=== PATIENT | male | born 1970 | race African-American/Black ===

== ENCOUNTER 2017-04-09 11:02 | Day surgery (SDC) | payer OTHER ==
--- NOTE | 2016-12-07 09:47 | HP ---
PREOPERATIVE HISTORY AND PHYSICAL: DATE OF ADMISSION/SURGERY: 01/01/17 [facility] DATE OF OFFICE VISIT/ENCOUNTER: 12/02/16 ATTENDING SURGEON: Jayshree Paz MD * (DICTATED BY ANJU FLOREZ) PROCEDURE: Right long and ring trigger finger releases. CHIEF COMPLAINT: Right long and ring finger triggering. HISTORY OF PRESENT ILLNESS: This is a 46-year-old male who complains of locking pain and triggering in his right long and finger fingers. This has been developing over the past year and has been getting progressively worse. It is very bothersome anytime he tries to group controller anything. Sometimes the fingers lock in flexion and he cannot extend them. He has failed conservative treatment including a cortisone injection. The patient would like to proceed with surgical intervention at this time for correction of this problem. PAST MEDICAL HISTORY: 1. Hypertension. 2. Diabetes. 3. Hypercholesterolemia. 4. Herniated disk in his neck. 5. Anxiety/depression. PAST SURGICAL HISTORY: 1. Right shoulder surgery. 2. Right knee surgery x3. 3. Right ankle surgery. 4. Right small finger surgery for mallet repair. CURRENT MEDICATIONS: 1. Ambien 10 mg q.h.s. p.r.n. 2. Aspirin 81 mg daily. 3. Carvedilol 25 mg half tab twice a day. 4. Cymbalta 60 mg daily. 5. Diclofenac sodium 50 mg up to 3 times a day as needed. 6. Gabapentin 300 mg four times a day. 7. Hydrocodone/acetaminophen 10/325 q.12 hours p.r.n. 8. Hydroxyzine HCl 50 mg 2 q.h.s. p.r.n. sleep. 9. Lisinopril 40 mg daily. 10. Melatonin 3 mg q.h.s. 11. Metformin HCl 500 mg b.i.d. 12. Multivitamin daily. 13. Norvasc 10 mg daily. 14. Oxycodone HCl ER 40 mg 1 tab t.i.d. 15. Potassium chloride ER 20 mEq daily. 16. Pravastatin sodium 20 mg half tab daily. 17. Sildenafil citrate 20 mg daily. 18. Testosterone cypionate 200 mg/mL, 100 mg weekly injections. 19. Vitamin C 500 mg daily. ALLERGIES: No known drug allergies. FAMILY MEDICAL HISTORY: Diabetes. 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 He is a smoker. He smokes a pack per day. He denies recreational drug use. Does admit to alcohol use on rare occasion. REVIEW OF SYSTEMS: General: Negative for fevers, chills, or night sweats. No known anesthesia problems. HEENT: Negative for headache, lightheadedness, or syncopal episodes. Integumentary: Negative for abrasions, lesions, or open wounds. Cardiothoracic: Positive for hypertension. Negative for chest pain, palpitations, or edema. Pulmonary: Negative for shortness of breath with exertion, chronic cough, or COPD. GI: Negative for nausea, vomiting, diarrhea , constipation, or GERD. : Negative for nocturia, urinary frequency, urgency , history of UTIs, or kidney problems. Musculoskeletal: Positive for current complaint. Positive for chronic neck pain. Neurological: Positive for anxiety /depression. Negative for paresthesias, numbness, history of seizure, stroke, or epilepsy. Endocrine: Positive for diabetes. Negative for thyroid issues. Hematologic: Negative for easy bruising, anemia, excessive bleeding, or history of DVT. Infectious Disease: Negative for history of MRSA, hepatitis C , or HIV. PHYSICAL EXAMINATION GENERAL: Well-developed, well-nourished, 46-year-old male in no acute distress. VITAL SIGNS: Height 5 feet 11.5 inches, weight 270 pounds, blood pressure 135/ 84, pulse rate 67. HEENT: Normocephalic, atraumatic. Pupils are equal, round, and reactive to light and accommodation. Extraocular movements are intact. NECK: Supple. No palpable lymph nodes. Throat is clear. PULMONARY: Lungs are clear to auscultation bilaterally. No wheezes, rales, or rhonchi. CARDIOVASCULAR: Regular rate and rhythm. S1, S2. No murmurs, rubs, or gallops. No edema. ABDOMEN: Positive bowel sounds, soft, nontender. NEUROLOGICAL: Alert and oriented x3. Cranial nerves II through XII are intact. Sensation is intact to light touch. MUSCULOSKELETAL: On exam of his right hand, he has tenderness to palpation of the A1 pulleys of both the long and ring fingers. He has full motion but active triggering as he moves from flexion to extension. Neurovascular function is intact. IMPRESSION: Right long and ring finger trigger fingers. PLAN: The patient is scheduled to undergo a right long and ring finger trigger finger release with Dr. Paz on 01/01/17. He will return to the office 10 to 14 days postop for followup and suture removal. He has pain medications already at home for chronic neck pain secondary to a herniated disk and he will plan on using these if needed for postoperative pain management. ANJU FLOREZ [id number]/[facility] #: [id number] CASANDRA
--- NOTE | 2017-04-08 04:00 | HP ---
PREOPERATIVE HISTORY AND PHYSICAL: DATE OF SURGERY/ADMISSION: 04/09/17 [facility] DATE OF OFFICE VISIT/ENCOUNTER: 04/07/17 ATTENDING SURGEON: Jayshree Paz MD * (DICTATED BY ANJU FLOREZ) PROCEDURE: Left ring finger trigger finger release, cortisone injections right ring and middle trigger fingers. CHIEF COMPLAINT: Left ring finger triggering. HISTORY OF PRESENT ILLNESS: This is a 46-year-old male who complains of locking and pain and triggering in his left ring finger. This has been developing over the past year and has been getting progressively worse. It is very bothersome anytime he tries to coutierier anything. Sometimes, his finger locks in flexion and he cannot extend it. He has failed conservative treatment including a cortisone injection. The patient would like to proceed with surgical intervention at this time for correction of this problem. The patient is also complaining of triggering in his right ring and middle fingers and has consented to proceed with cortisone injections in those fingers on the day of surgery. PAST MEDICAL HISTORY: 1. Hypertension. 2. Diabetes. 3. Hypercholesterolemia. 4. Herniated disk in his neck. 5. Anxiety/depression. PAST SURGICAL HISTORY: 1. Right shoulder surgery. 2. Right knee surgery x3. 3. Right ankle surgery. 4. Right small finger surgery for mallet repair. CURRENT MEDICATIONS: 1. Ambien 10 mg q.h.s. p.r.n. 2. Aspirin 81 mg daily. 3. Carvedilol 25 mg half tab twice daily. 4. Cymbalta 60 mg daily. 5. Diclofenac sodium 50 mg up to 3 times a day p.r.n. 6. Gabapentin 300 mg 4 times a day. 7. Hydrocodone/acetaminophen 10/325 q.12 hours p.r.n. pain. 8. Hydroxyzine HCl 50 mg 2 q.h.s. p.r.n. sleep. 9. Lisinopril 40 mg daily. 10. Melatonin 3 mg q.h.s. 11. Metformin HCl 500 mg b.i.d. 12. Multivitamin daily. 13. Norvasc 10 mg daily. 14. Oxycodone HCl ER 40 mg one tab t.i.d. 15. Potassium chloride ER 20 mEq daily. 16. Pravastatin sodium 20 mg half tab daily. 17. Sildenafil citrate 20 mg daily. 18. Testosterone. 19. Cypionate 200 mg/mL 100 mg weekly injections. 20. Vitamin C 500 mg daily. ALLERGIES: No known drug allergies. FAMILY MEDICAL HISTORY: Diabetes. 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 He is a smoker. He smokes approximately a pack per day. He denies recreational drug use. He admits to drinking alcohol or rare occasion. REVIEW OF SYSTEMS: General: Negative for fevers, chills, or night sweats. No known anesthesia problems. HEENT: Negative for headache, lightheadedness, or syncopal episodes. Integumentary: Negative for abrasions, lesions, or open wounds. Cardiothoracic: Positive for hypertension. Negative for chest pain, palpitations, or edema. Pulmonary: Negative for shortness of breath with exertion, chronic cough, or COPD. GI: Negative for nausea, vomiting, diarrhea, constipation, or GERD. : Negative for nocturia, urinary frequency or urgency , history of UTIs or kidney problem. Musculoskeletal: Positive for current complaint. Positive for chronic neck pain. Neurologic: Positive for anxiety/ depression. Negative for paraesthesias, numbness, history of seizure, stroke, or epilepsy. Endocrine: Positive for diabetes. Negative for thyroid issues. Hematologic: Negative for easy bruising, anemia, excessive bleeding, or history of DVT. Infectious Disease: Negative for history of MRSA, hepatitis C , or HIV. PHYSICAL EXAMINATION: GENERAL: Well-developed, well-nourished 46-year-old male, in no acute distress. VITAL SIGNS: Height 5 feet 11-1/2 inches, weight 265 pounds, blood pressure 159 /100, pulse rate 68. HEENT: Normocephalic, atraumatic. Pupils are equal, round, and reactive to light and accommodation. Extraocular movements are intact. Throat is clear. NECK: Supple. No palpable lymph nodes. PULMONARY: Lungs are clear to auscultation bilaterally. No wheezes, rales, or rhonchi. CARDIOVASCULAR: Regular rate and rhythm. S1, S2. No murmurs, rubs, or gallops. No edema. ABDOMEN: Positive bowel sounds, soft, nontender. NEUROLOGIC: Alert and oriented x3. Cranial nerves II through XII are intact. Sensation is intact to light touch. MUSCULOSKELETAL: On exam of his left hand, he has tenderness to palpation at the A1 cassius of the ring finger. He has full motion, but stiffness as he tries to fully flex the finger and triggering upon return to extension. Neurovascular function is intact. On exam of the right hand, he has tenderness to palpation at the A1 pulleys of both the long and ring fingers. He has full motion, but active triggering as he moves through range of motion. IMPRESSION: Left hand ring finger trigger, right hand ring and middle finger trigger fingers. PLAN: The patient is scheduled to undergo a left ring finger trigger finger release, and cortisone injections for the right ring and middle trigger fingers on 04/09/[address] Paz. He will return to the office 10 to 14 days for followup and suture removal. He has pain medications already at home for chronic neck pain secondary to a herniated disk and he will plan on using these if needed for postoperative pain management. ANJU FLOREZ [id number]/[facility] #: [id number] CASANDRA
[~2017-04-09 11:02] MED LIST: Buffered Lidocaine 0.9% SYRIN* 5 ML/SYR SYRINGE INTRADERM ONE
[2017-04-09] MEDS ORDERED: methylPREDNISolone ACETATE 80* 80 MG/ML 1 ML VIAL ONE (12:17)
[2017-04-09] MEDS ORDERED: Lidocaine 1% INJ* 10 MG/ML 30 ML SDV ONE (12:17)
[2017-04-09] MEDS ORDERED: Midazolam* 1 MG/ML 2 ML VIAL (2 MG) ONE (12:26)
[2017-04-09] MEDS ORDERED: Propofol* 10 MG/ML 20 ML BTL IV PUSH ONE (12:26)
[2017-04-09] MEDS ORDERED: fentaNYL* 50 MCG/ML 2 ML VIAL (100 MCG VIAL) ONE (12:26)
[2017-04-09 12:59] VITALS: BP 141/97
--- NOTE | 2017-04-10 06:07 | OP ---
DATE OF OPERATION: 04/09/17 [facility] DATE OF : 72 SURGEON: Jayshree Paz MD ENERGY EFFICIENCY ENGINEER: ANJU Anna ANESTHESIA: Local MAC. PRE-OP DIAGNOSIS: Trigger fingers of the left ring, right middle, and right ring. POST-OP DIAGNOSIS: Trigger fingers of the left ring, right middle, and right ring. OPERATIVE PROCEDURE: Trigger finger injection, right middle and right ring, and trigger finger release, left ring. INDICATIONS: Demetrius is a 46-year-old man who has severe locking and triggering of his left ring, right middle, and right ring fingers. He presents for trigger finger injection on the right and release of the ring finger on the left. ESTIMATED BLOOD LOSS: Zero. TOURNIQUET TIME: About 5 minutes. DESCRIPTION OF PROCEDURE: The patient was brought to the operative room and was given a sedation anesthetic and a digital block with 10 cc of 1% plain lidocaine overlying the A1 cassius of the left ring finger. Skin of his left hand and forearm was prepped and draped in the usual sterile fashion. The hand and forearm were exsanguinated and the tourniquet elevated to 250 mmHg. A transverse incision was made centered over the A1 cassius of the left ring finger. We dissected through the subcutaneous tissue bluntly down to the A1 cassius. Cassius was incised longitudinally, completely releasing the flexor tendons, which were in good condition but had abundant tenosynovitis surrounding them. This tenosynovitis was debrided. The wound was irrigated and the skin edges reapproximated with 4-0 nylon suture. The wound was dressed with Xeroform, 4x4, Webril, and an Usman wrap. The patient tolerated the procedure well and was brought to the recovery room in good condition. [id number]/[facility] #: [id number] MTDD
== END 2017-04-09 13:16 | disposition home or self-care (01) ==
LOC: OREAST 11:02
PROVIDERS: ATTEND Orthopaedic Surgery
DX: M65.342 Trigger finger, left ring finger (principal); M65.331 Trigger finger, right middle finger; M65.341 Trigger finger, right ring finger; F17.210 Nicotine dependence, cigarettes, uncomplicated; E11.8 Type 2 diabetes mellitus with unspecified complications; I10 Essential (primary) hypertension; E78.00 Pure hypercholesterolemia, unspecified; Z79.84 Long term (current) use of oral hypoglycemic drugs
CPT/HCPCS: J1040; J2250; J2704; J3010

== ENCOUNTER 2017-05-11 06:30 | Day surgery (SDC) | payer OTHER ==
[2017-05-11] MEDS ORDERED: methylPREDNISolone ACETATE 80* 80 MG/ML 1 ML VIAL ONE (07:15)
[2017-05-11] MEDS ORDERED: Lidocaine 1% INJ* 10 MG/ML 30 ML SDV ONE (07:15)
[2017-05-11] MEDS ORDERED: Midazolam* 1 MG/ML 2 ML VIAL (2 MG) ONE (07:36)
[2017-05-11] MEDS ORDERED: fentaNYL* 50 MCG/ML 2 ML VIAL (100 MCG VIAL) ONE (07:36)
[2017-05-11] MEDS ORDERED: KETAMINE HCL* 50 MG/ML 10 ML VIAL ONE (07:54)
[2017-05-11] MEDS ORDERED: oxyCODONE/Acetamin 5/325 MG* TAB PO PRN (08:09)
[2017-05-11] MEDS ORDERED: Ondansetron INJ* 2 MG/ML VIAL IV PRN (08:09)
[2017-05-11] MEDS ORDERED: DiMENhydriNATE IV* 50 MG/ML VIAL IV PUSH PRN (08:09)
[2017-05-11] MEDS ORDERED: Acetaminophen TAB* 325 MG PO PRN (08:09)
[2017-05-11] MEDS ORDERED: Propofol* 10 MG/ML 20 ML BTL IV PUSH ONE (08:15)
[2017-05-11] MEDS ORDERED: Ketorolac INJ* 30 MG/ML 1 ML VIAL ONE (08:15)
[2017-05-11] MEDS ORDERED: Lidocaine 2% PF * 5 ML VIAL ONE (08:15)
[2017-05-11 08:38] VITALS: BP 181/107
--- NOTE | 2017-05-11 09:29 | OP ---
DATE OF OPERATION: 05/11/17 [facility] DATE OF : 72 SURGEON: Jayshree Paz MD. MOTORCYCLE MAKER: AJNU Anna. ANESTHESIOLOGIST: Dr. Flores ANESTHESIA: Local MAC. PRE-OP DIAGNOSIS: Trigger finger's right ring and middle and left middle finger. POST-OP DIAGNOSIS: Trigger finger's right ring and middle and left middle finger. OPERATIVE PROCEDURE: Left middle finger trigger injection and right middle finger and ring finger trigger release. ESTIMATED BLOOD LOSS: Zero. TOURNIQUET TIME: Approximately 10 minutes. INDICATIONS FOR PROCEDURE: Demetrius is a 46-year-old male with trigger fingers of bilateral and middle and ring fingers, who presents for injection of left middle finger and trigger finger release of the middle and ring fingers on the right hand. DESCRIPTION OF PROCEDURE: The patient was brought to the operating room, was given a sedation anesthetic and a local infiltration of 10 cc of 1% plain lidocaine on the palm of his right hand. A combination of 1 mL of 1% plain lidocaine and an 80 mg of Depo-Medrol was injected after sterile prep as A1 cassius of the left middle finger. Skin of the right hand and forearm was prepped and draped in usual sterile fashion. The hand and forearm were exsanguinated and the tourniquet elevated to 250 mmHg. A transverse incision was made centered over the A1 cassius of the middle and ring finger, which dissected bluntly to the subcutaneous tissue down to the A1 pullies. The digital neurovascular bundles were retracted by the surgical supply assistant, Arti Ma. The A1 pullies of the middle and ring fingers were then incised longitudinally completely releasing the flexor tendons, which were in good condition. The wound was copiously irrigated with saline. The skin edges were reapproximated with 4-0 nylon suture. The wound was dressed with Xeroform, 4x4 , Webril, and an Usman wrap. The patient tolerated the procedure well, was brought to the recovery room in good condition. [id number]/[facility] #: [id number] MTDD
== END 2017-05-11 09:13 | disposition home or self-care (01) ==
LOC: OREAST 06:30
PROVIDERS: ATTEND Orthopaedic Surgery
DX: M65.331 Trigger finger, right middle finger (principal); M65.341 Trigger finger, right ring finger; M65.332 Trigger finger, left middle finger; I10 Essential (primary) hypertension; F17.200 Nicotine dependence, unspecified, uncomplicated; E11.9 Type 2 diabetes mellitus without complications; Z79.84 Long term (current) use of oral hypoglycemic drugs; F41.8 Other specified anxiety disorders
CPT/HCPCS: J1040; J1885; J2250; J2704; J3010

== ENCOUNTER 2017-06-01 10:42 | Day surgery (SDC) | payer OTHER ==
--- NOTE | 2017-05-31 15:37 | HP ---
DATE OF ADMISSION: 06/01/2017 - [facility] DATE OF DICTATION: 05/31/2017. CHIEF COMPLAINT: Right hand wound. HISTORY OF PRESENT ILLNESS: Demetrius is a 47-year-old male who had a trigger finger release of the right ring and middle fingers on 05/11/2017. At his postop appointment, the sutures were removed and he had wound dehiscence. He has been treated with warm soapy water soaks and antibiotics, but the wound continues to drain clear fluid and has not healed. He presents for I and D of the right hand wound. PAST MEDICAL HISTORY: Significant for diabetes, hypertension, hypercholesterolemia, herniated disk in the neck, anxiety and depression. PAST SURGICAL HISTORY: Right shoulder surgery, three knee surgeries, right ankle surgery, right small finger mallet finger repair, left hand trigger finger release, right hand trigger finger release. MEDICATIONS: 1. Ambien 10 mg p.o. at bedtime prn for sleep. 2. Aspirin 81 mg p.o. daily. 3. Carvedilol 25 mg [id number] p.o. b.i.d. 4. Cymbalta 60 mg p.o. daily. 5. Diclofenac Sodium 50 mg p.o. t.i.d. prn. 6. Gabapentin 300 mg p.o. q.i.d. 7. Hydrocodone/acetaminophen 10/300 one p.o. q.12 hours prn. 8. Hydroxyzine Hydrochloride 50 mg two p.o. at bedtime prn for sleep. 9. Lisinopril 40 mg p.o. daily. 10. Melatonin 3 mg p.o. at bedtime. 11. Metformin HCl 500 mg p.o. b.i.d. 12. Multivitamin for men one p.o. daily. 13. Norvasc 10 mg p.o. daily. 14. Oxycodone HCl ER 40 mg p.o. t.i.d. 15. Potassium Chloride ER 20 mEq p.o. daily. 16. Pravastatin Sodium 20 mg [id number] p.o. at bedtime. 17. Sildenafil Citrate 20 mg p.o. daily. 18. Testosterone Cypionate 200 mg/ml 100 mg weekly injection. 19. Vitamin C 500 mg p.o. daily. ALLERGIES: No known drug allergies. FAMILY HISTORY: Diabetes. 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 He smokes approximately a pack of cigarettes a day. He denies recreational drug abuse. Occasional alcohol intake. REVIEW OF SYSTEMS: Negative for fever, chills, night sweats. No known anesthesia problems. Review of systems is negative for cephalic, cardiovascular , respiratory, gastrointestinal, skin, neurologic, endocrine and hematologic symptoms. Positive for chronic neck pain. Negative for history of MRSA, hepatitis C, HIV. PHYSICAL EXAMINATION GENERAL: He is a healthy-appearing, well-nourished male in no acute distress. VITAL SIGNS: Weight 205 pounds, height 71.5, pulse 84, respirations 14, temperature 97.3. HEENT: Exam is unremarkable. NECK: He has somewhat mild decreased range of motion of his neck due to pain. LUNGS: Clear to auscultation. Good inspiratory effort. No wheezing. The patient admits to some upper respiratory congestion today. HEART: Regular rate and rhythm without murmur. PERIPHERAL VASCULAR: He has palpable pulses, no peripheral edema. EXTREMITIES: Exam of his right hand: He has a wound with clear serous drainage , no erythema, but no healing of the incision. He can move his fingers well. There is no clicking or locking. NEUROLOGIC: He is alert and oriented without focal deficit. IMPRESSION: Postop wound infection after trigger finger release. PLAN: I and D of the right hand wound. This will be done 06/01/2017. We will see the patient back in follow-up about ten days postop. [id number]/[facility] #: [id number] CASANDRA
[~2017-06-01 10:42] MED LIST changes: +Famotidine TAB* 20 MG PO ONE; +Lidocaine 1% INJ* 10 MG/ML 30 ML SDV ONE; +Metoclopramide TAB* 10 MG PO ONE; +Naloxone* 0.4 MG/ML 1 ML VIAL IV PRN; +Ondansetron INJ* 2 MG/ML VIAL IV PRN; +fentaNYL* 50 MCG/ML 2 ML VIAL (100 MCG VIAL) IV PRN; +oxyCODONE/Acetamin 5/325 MG* TAB PO PRN
[2017-06-01] MEDS ORDERED: Famotidine IV* 10 MG/ML 2 ML (20 mg) ONE ×2 (10:54→11:32)
[2017-06-01] MEDS ORDERED: Metoclopramide TAB* 10 MG ONE (10:54)
[2017-06-01] MEDS ORDERED: ceFAZolin 2 GM PREMIX (*) 2 GM/50 ML BAG IVPB ONE (10:54)
[2017-06-01] MEDS ORDERED: fentaNYL* 50 MCG/ML 2 ML VIAL (100 MCG VIAL) ONE (11:47)
[2017-06-01] MEDS ORDERED: Ketorolac INJ* 30 MG/ML 1 ML VIAL ONE (11:47)
[2017-06-01] MEDS ORDERED: Ondansetron INJ* 2 MG/ML VIAL ONE (11:47)
[2017-06-01] MEDS ORDERED: Propofol* 10 MG/ML 20 ML BTL IV PUSH ONE (11:47)
[2017-06-01] MEDS ORDERED: Midazolam* 1 MG/ML 2 ML VIAL (2 MG) ONE (11:47)
[2017-06-01 13:42] VITALS: BP 144/88
--- NOTE | 2017-06-02 03:15 | OP ---
DATE OF OPERATION: 06/01/17 [facility] DATE OF : 72 SURGEON: aJyshree Paz MD PHOTO CHECKER: ANJU Jason ANESTHESIOLOGIST: Gilbert Ledesma MD ANESTHESIA: Local MAC. PRE-OP DIAGNOSIS: Postop wound infection and dehiscences of the right hand. POST-OP DIAGNOSIS: Postop wound infection and dehiscences of the right hand. OPERATIVE PROCEDURE: I and D of the right hand. ESTIMATED BLOOD LOSS: Zero. TOURNIQUET TIME: About 10 minutes. INDICATION FOR PROCEDURE: Demetrius is a 47-year-old male who had trigger finger releases of the right middle and ring fingers 3 weeks ago. After his sutures removed, he developed a dehiscences of his wound and was treated with warm soapy water soap and antibiotics, but has failed to heal the wound and still has abundant serous drainage. He presents for I and D of the right hand. DESCRIPTION OF PROCEDURE: The patient was brought to the operating room, was given a sedation anesthetic and a local infiltration of 10 cc of 1% plain lidocaine. The skin of his right hand and forearm was prepped and draped in the usual sterile fashion. The hand and forearm were exsanguinated and the tourniquet elevated to 250 mmHg. The wound was copiously irrigated with saline. The flexor tendons were in very good condition. There was no purulent material prior to the irrigation. The wound was cultured. After irrigating with a liter of saline, the wound was loosely closed with 4-0 nylon suture and dressed with Xeroform, 4x4, Webril, and an Usman wrap. The patient tolerated the procedure well and was brought to the recovery room in good condition. [id number]/[facility] #: [id number] [facility]
== END 2017-06-01 13:40 | disposition home or self-care (01) ==
LOC: OREAST 10:42
PROVIDERS: ATTEND Orthopaedic Surgery
DX: T81.4XXA Infection following a procedure, initial encounter (principal); E11.9 Type 2 diabetes mellitus without complications; Z79.84 Long term (current) use of oral hypoglycemic drugs; I10 Essential (primary) hypertension; E78.00 Pure hypercholesterolemia, unspecified; F41.8 Other specified anxiety disorders; M50.20 Other cervical disc displacement, unspecified cervical region
CPT/HCPCS: 87070; 87073; 87205; A9270-GY; J0690; J1885; J2250; J2405; J2704; J3010

== ENCOUNTER 2017-09-01 12:36 | Observation (INO) | payer OTHER ==
[2017-09-01] MEDS ORDERED: Nitroglycerin 2% OINT* 1 GM PAK TOPICAL ONE (13:15)
[2017-09-01] MEDS ORDERED: Albuterol/Ipratropium NEB.SOL* Albuterol 2.5 MG/Ipratropium 0.5 MG 3 ML INH ONE (13:17)
[2017-09-01 13:42] LABS: Hematocrit 49 % (42-52); Hemoglobin 16.7 g/dl (14.0-18.0); Mean Corpuscular HGB Conc 34 g/dl (31-36); Mean Corpuscular Hemoglobin 31 pg (27-31); Mean Corpuscular Volume 91 fL (80-94); Red Blood Count 5.38 10^6/ul (4.0-5.4); Red Cell Distribution Width 14 % (10.5-15); White Blood Count 12.1 10^3/ul (3.5-10.8)
--- NOTE | 2017-09-01 14:02 | RAD ---
Indication: Chest pain, tightness, nausea. History of tobacco use. Comparison: October 28, 2013 Technique: Upright AP 1354 hours Report: Suggestion of a potential 7 mm LEFT basilar pulmonary nodule new compared with the 2014 exam. The lungs and pleural spaces are otherwise clear. Negative for pneumothorax. The heart, pulmonary vasculature, and mediastinal contours are unremarkable. IMPRESSION: Given history of tobacco use consider CT to further assess the potential 7 mm nodule at the LEFT lung base. The examination is otherwise unremarkable.
[2017-09-01 14:03] LABS: ABS Basophils 0.1 10^3/ul (0-0.2); ABS Eosinophils 0.1 10^3/ul (0-0.6); ABS Lymphocytes 3.2 10^3/ul (1.0-4.8); ABS Monocytes 0.9 10^3/ul (0-0.8); ABS Neutrophils 7.8 10^3/ul (1.5-7.7); ABS Nucleated RBC 0 10^3/ul; Eosinophil % 1.2 % (0-6); Lymphocyte % 26.5 % (25-47); Mean Platelet Volume 11.3 um3 (7.4-10.4); Nucleated Red Blood Cells % 0.1; Platelet Count 132 10^3/ul (150-450)
[2017-09-01 14:05] LABS: EGFR Non-African American 83.3 (>60)
[2017-09-01] MEDS ORDERED: Dextrose 50% Syringe 50 ML* 25 GM/50 ML SYRINGE IV PUSH PRN (14:44)
[2017-09-01] MEDS ORDERED: Ondansetron INJ* 2 MG/ML VIAL IV PRN (14:44)
[2017-09-01] MEDS ORDERED: Acetaminophen TAB* 325 MG PO PRN (14:44)
[2017-09-01] MEDS ORDERED: Zolpidem TAB* 10 MG PO PRN (14:46)
[2017-09-01] MEDS ORDERED: Iodixanol* (CONTRAST) 320 MG/ML 100 ML SDV IV ONE (16:10)
--- NOTE | 2017-09-01 16:24 | RAD ---
Indication: Chest pain, lung nodule Contrast: Administered 95.0 ml of Contrast -- mg/ml CTA of the chest was performed after IV contrast administration. Coronal and sagittal reconstructed images were obtained. The pulmonary arterial tree is well opacified. There is no evidence of filling defect to suggest pulmonary embolus. Small 3 to 5 mm pretracheal lymph nodes are noted. The origins of the great vessels demonstrates a separate origin of left vertebral artery between the left common carotid left subclavian artery. The trachea and major bronchi appear patent. The right lung field demonstrates no pleural fluid, nodules or masses. There may be some dependent changes in the right lung base. No alveolar consolidation is noted. The left lung field demonstrates no evidence of consolidation. No focal nodules are noted in the left base. This may represent a nipple shadow. No pleural fluid is identified. No pneumothorax is noted. No bony structures are noted. IMPRESSION: No evidence of pulmonary embolus is noted. No evidence of left lower lobe nodule is identified.
--- NOTE | 2017-09-01 16:30 | HP ---
CC: Dr. Gilbert* HISTORY AND PHYSICAL: DATE OF ADMISSION: 09/01/17 PRIMARY CARE PROVIDER: Dr. Gilbert. ATTENDING PHYSICIAN WHILE IN THE HOSPITAL: Dalton Samuel MD* (report dictated by Jesus Benites NP) CHIEF COMPLAINT: Chest pain. HISTORY OF PRESENT ILLNESS: Mr. Rojas is a 47-year-old male patient. He has a history of diabetes, hypertension, and hyperlipidemia. He has a history of a cervical spine herniated disk. He has a history of anxiety, depression, YENI, also carries a history of a right hand wound which has now healed. He comes in to our ER today stating that the last 2 to 3 weeks he has been having intermittent chest discomfort. He stays the pain typically starts out in his neck and this is common for him. He has been having this for some time. He is going to be seeing a neurosurgeon for this. The pain starts in the neck and then it will shoot down to one of his arms and his left arm becomes numb. He has noted in the last 2 to 3 weeks he has had intermittent chest discomfort associated with the neck pain. He says that when he gets this discomfort, he will sometimes get diaphoretic and he will also get short of breath with it. He feels that to his knowledge, the pain has not started with exertion. He describes the pain as a pressure, he says it is not exertional. He says he has been having the pain in the intensity lasting anywhere from seconds to half a minute. He has not had any calf pain, no leg swelling, no abdominal pain. He has not had any fevers or chills. There has been no recent cough or shortness of breath. He denied having any recent illnesses. There has been no nausea, vomiting, or any diarrhea. He was concerned though because he was getting this intermittent chest discomfort. He was actually at his PCP's today, he relayed this information to his PCP, his PCP was concerned and said that he should be evaluated for further etiologies. He came into the ED today, he is chest pain free now, but because of his risk factors, the fact that he was having intermittent chest discomfort, we were asked to evaluate for admission. PAST MEDICAL HISTORY: Significant for: 1. Diabetes. 2. Hypertension. 3. Hyperlipidemia. 4. Disk herniation in the cervical spine. 5. Anxiety. 6. Depression. 7. Right hand wound, which has now healed. 8. YENI. PAST SURGICAL HISTORY: 1. He has had right shoulder surgery. 2. He has had 3 knee surgeries. 3. He has had right ankle surgery. 4. He has had both right and left trigger finger surgeries. 5. He has had right 5th finger repair secondary to a fracture. HOME MEDICATIONS: Include: 1. Melatonin 3 mg at bedtime. 2. Lisinopril 40 mg daily. 3. Metformin 500 mg p.o. b.i.d. 4. Amlodipine 10 mg p.o. daily. 5. Multivitamin 1 tablet daily. 6. Vitamin C 500 mg p.o. daily. 7. [employer] 1 tablet p.o. b.i.d. as needed. 8. Oxycodone 10 to 20 mg every 4 hours as needed. 9. Testosterone 200 mg IM weekly. 10. Pravachol 40 mg p.o. at bedtime. 11. Potassium 20 mEq p.o. daily. 12. Atarax 50 mg p.o. at bedtime as needed. 13. Ambien 10 mg p.o. at bedtime as needed. 14. Cymbalta 60 mg p.o. daily. 15. Coreg 12.5 mg p.o. b.i.d. 16. Aspirin 81 mg daily. 17. Gabapentin 300 mg p.o. q.a.m. 18. Voltaren EC 50 mg p.o. t.i.d. as needed. ALLERGIES TO MEDICATIONS: Include no known drug allergies. FAMILY HISTORY: His mother has a history of dementia. Father, he said of kidney failure. SOCIAL HISTORY: He was a pack a day smoker. He says now a pack lasts him about a week. He has been smoking since the age of 17. He rarely drinks alcohol. Surrogate decisionmaker is his . REVIEW OF SYSTEMS: There is no documented fever. He denied having any significant weight change. There is no double vision. He denies having any ear discharge. There is no rhinorrhea. He denies having any sore throat. He denies having any abdominal pain. He did admit to nausea associated with chest pressure. He does admit to chest pressure from [facility]. He denies any shortness of breath with the exception he does have it when he get chest discomfort. He denies having any abdominal pain now. He denies having any dysuria. No frequency. There is no seizure. He denies having any loss of consciousness. Review of 14 systems completed, all others negative. PHYSICAL EXAMINATION GENERAL: At this time, Mr. Rojas is a 47-year-old male patient. He is sitting in the ED stretcher. He does not appear to be in any acute distress. VITAL SIGNS: Blood pressure 138/93, pulse 56, respirations 18, O2 sat 98%, and temperature 98.7. HEENT: Head atraumatic and normocephalic. Eyes, EOMs are intact. Sclerae anicteric and not pale. Throat, oral mucosa appears to be moist. No oropharyngeal erythema. NECK: Supple. LUNGS: Clear to auscultation bilaterally. No wheezes, rales, or rhonchi. HEART: Sounds S1 and S2. Regular rate and rhythm. No murmurs, rubs, or gallops. ABDOMEN: Soft, it was flat, nontender. Bowel sounds are present. EXTREMITIES: Pulses were 2+ throughout. Moving all 4 extremities with 5/5 strength. NEUROLOGIC: The patient is awake, he is alert, he is oriented x3. His speech is clear. Tongue midline. He had no gross focal deficits. SKIN: Grossly intact. DIAGNOSTIC STUDIES/LABORATORY DATA: Revealed a WBC of 12.1, RBC of 5.38, hemoglobin of 16.7, hematocrit of 49, platelet count of 132. Sodium 140, potassium 4.2, chloride of 108, bicarb 27, BUN 12, creatinine of 0.97, glucose of 106, lactic 1.1, calcium 9.1. Total bili 1.3, AST 15, ALT 16, alk phos 52. Troponin 0.01. Albumin of 4.3. There is a chest x-ray. When I reviewed it, I did not appreciate any acute disease; however, Radiology read it as given history of tobacco abuse, consider CT to assess the potential 7 mm lung nodule at the left lung base. Exam otherwise is negative. He did have an EKG. The EKG today here reveals a normal sinus rhythm. He did have flattened T waves in lead I and inverted in aVL, which are new compared with his EKG from 2008 in the computer. I do note that in the office he did have inverted T waves in lead I and aVL as well, which is similar here. Old medical records reviewed. ASSESSMENT AND PLAN: Mr. Rojas is a 47-year-old male patient coming into the ED today with complaints of chest discomfort for evaluation. He was evaluated here, there was concern for EKG changes and chest pain. We were asked to evaluate for admission. He will be admitted under observation status for: 1. Chest pain. Again, certainly the patient has risk factors for acute coronary artery syndrome. He is already on an aspirin, he will continue his. He will continue his beta saravanan and statin therapy. He is chest pain free now. We will cycle his troponins. I will get a lipid panel and A1c in the morning. I will place him on telemetry. We will get a stress test in the morning as well as an EKG. 2. Pulmonary nodule. With the history of smoking, I am going to get a CTA of the chest to further evaluate his nodule today and also to rule out PE. 3. Diabetes. He will be placed on lispro sliding scale. 4. Hypertension. Continue meds prescribed. 5. Hyperlipidemia. Continue statin therapy. 6. History of cervical herniated disk. He is to follow with his scheduled neurosurgical appointment in 2 weeks. 7. Anxiety and depression. Continue supportive care. 8. Right hand wound. It appears to be well healed and approximated. We will continue to monitor. 9. Obstructive sleep apnea. Continue CPAP. 10. DVT prophylaxis: He will be placed on heparin subcu. 11. Code status: Full code. 12. Fluids, electrolytes, and nutrition: He can have a heart-healthy diet. TIME SPENT: Time spent on this admission 60 minutes, greater than half the time was spent [id number] with the patient obtaining my history and physical, the other half the time was spent going over the plan of care with the patient and implementing the plan of care. I discussed the plan of care with my attending Dr. Samuel, he is in agreement. JESUS BENITES, PAULA [id number]/[facility] #: [id number] MTDCori
[2017-09-01] MEDS: oxyCODONE TAB* 5 MG TAB PO PRN ×2 (16:35→20:41)
[2017-09-01] MEDS: Insulin LISPRO* 1 UNITS UNIT SUBCUT SCH (18:55)
[2017-09-01] MEDS: Hydrocodone/Acetamin 10/325 1 TAB PO PRN (19:12)
[2017-09-01 19:13] LABS: Urine Appearance Clear; Urine Blood Negative (Negative); Urine Color Yellow; Urine Ketones Negative (Negative); Urine Protein 2+(100 mg/dL) (Negative); Urine Specific Gravity > 1.060 (1.010-1.030); Urine Urobilinogen Positive (Negative)
[2017-09-01] MEDS: Carvedilol TAB* 25 MG PO SCH (20:41)
[2017-09-01] MEDS ORDERED: CMCS:Melatonin (NF) 3 MG TAB PO SCH (21:00)
[2017-09-01] MEDS ORDERED: Atorvastatin* 10 MG TAB PO SCH (21:00)
[2017-09-01] MEDS: Heparin VIAL(*) 5000 UNITS/ML VIAL (FIVE THOUSAND) SUBCUT SCH (22:22)
[2017-09-02] MEDS ORDERED: Mouth Piece, Nicotine* 1 EACH CARTRIDGE INH ONE (00:06)
[2017-09-02] MEDS: oxyCODONE TAB* 5 MG TAB PO PRN ×3 (00:57→14:52)
[2017-09-02] MEDS: Nicotine Inhaler* 10 MG AMP INH PRN ×4 (00:58→13:09)
[2017-09-02] MEDS: Heparin VIAL(*) 5000 UNITS/ML VIAL (FIVE THOUSAND) SUBCUT SCH (05:15)
[2017-09-02 05:49] LABS: Hematocrit 48 % (42-52); Hemoglobin 16.3 g/dl (14.0-18.0); Mean Corpuscular HGB Conc 34 g/dl (31-36); Mean Corpuscular Hemoglobin 31 pg (27-31); Mean Corpuscular Volume 91 fL (80-94); Red Cell Distribution Width 14 % (10.5-15); White Blood Count 15.8 10^3/ul (3.5-10.8)
[2017-09-02 06:00] LABS: EGFR Non-African American 75.2 (>60)
[2017-09-02 06:22] LABS: ABS Basophils 0.1 10^3/ul (0-0.2); ABS Eosinophils 0.2 10^3/ul (0-0.6); ABS Lymphocytes 3.3 10^3/ul (1.0-4.8); ABS Neutrophils 11.3 10^3/ul (1.5-7.7); ABS Nucleated RBC 0 10^3/ul; Eosinophil % 1.1 % (0-6); Lymphocyte % 20.6 % (25-47); Mean Platelet Volume 11.2 um3 (7.4-10.4); Nucleated Red Blood Cells % 0; Platelet Count 143 10^3/ul (150-450)
[2017-09-02] MEDS ORDERED: amLODIPine TAB* 5 MG PO SCH (09:00)
[2017-09-02] MEDS ORDERED: Aspirin EC TAB* 81 MG TAB.EC PO SCH (09:00)
[2017-09-02] MEDS ORDERED: Lisinopril TAB* 10 MG PO SCH (09:00)
[2017-09-02] MEDS ORDERED: DULoxetine DR CAP* 30 MG CAP.DR PO SCH (09:00)
[2017-09-02] MEDS ORDERED: Gabapentin CAP(*) 300 MG PO SCH (09:00)
[2017-09-02] MEDS ORDERED: Potassium Chlor TAB* 20 MEQ TAB.ER PO SCH (09:00)
[2017-09-02] MEDS ORDERED: Regadenoson* 0.4 MG/5 ML SYRINGE ONE (09:33)
[2017-09-02] MEDS ORDERED: Aminophylline IV* 25 MG/ML 10 ML VIAL ONE (09:33)
[2017-09-02] MEDS: Insulin LISPRO* 1 UNITS UNIT SUBCUT SCH ×2 (09:35→12:42)
[2017-09-02] MEDS: Hydrocodone/Acetamin 10/325 1 TAB PO PRN (10:44)
[2017-09-02] MEDS: Carvedilol TAB* 25 MG PO SCH (10:47)
--- NOTE | 2017-09-02 10:54 | RAD ---
INDICATION: Chest pain, shortness of breath, diabetes, tobacco use, obesity, elevated cholesterol, hypertension. COMPARISON: No relevant prior exams available on the [facility] PACS for comparison. TECHNIQUE: 10.830 mCi of Tc-99m Myoview were administered IV. SPECT images of the heart were obtained. Later on the same day. Under the direction of Dr. Greenberg, the patient was given an IV injection of a pharmacologic stress agent. Subsequently, the patient was given an IV injection of 25.990 mCi Tc-99m Myoview. SPECT images of the heart were obtained and a gated wall motion study was performed. FINDINGS: Gated wall motion images were obtained at stress and demonstrate mild hypokinesia at the septum. The calculated left ventricular ejection fraction is 54 % at stress. Estimated LEFT ventricular end diastolic volume is 135 mL. TID 0.96. Diaphragmatic attenuation. Based on review of the attenuation corrected and non corrected images the distribution of radiopharmaceutical within the myocardium on the stress and rest images is within normal limits. No fixed or reversible regions of hypoperfusion evident. IMPRESSION: 1. No compelling stress-induced ischemia or presence of an infarct. 2. Dilated LEFT ventricle. Hypokinesia at the septum. Normal range estimated LEFT ventricular ejection fraction. ASSESSMENT: Low risk based on nuclear portion. Based on imaging criteria from ACC/AHA 2002 Guideline Update for the Management of Patients With Chronic Stable Angina Table 23. Noninvasive Risk Stratification.
--- NOTE | 2017-09-02 13:41 | ED ---
Aurora Richey Nilda, scribed for Jamey Sanchez MD on 09/01/17 at 1257 . HPI Chest Pain - HPI Summary HPI Summary: This patient is a 47 year old M BIBA accompanied by with a chief complaint of constant midsternal CP with nausea since last night. The patient rates the pain 4/10 in severity. Symptoms aggravated by exertion, and alleviated by NTG and aspirin given by EMS SHOESHINER. Patient reports left arm numbness, fatigue (past 2 -3 weeks), and UE and LE soreness (past 2-3 weeks), but denies vomiting. PMHx includes neck problems that often cause arm numbness. Pt also has Hx HTN, DM, and HLD. Pt states he smokes. - History of Current Complaint Chief Complaint: EDChestPainROMI Time Seen by Provider: 09/01/17 12:39 Hx Obtained From: Patient Onset/Duration: Started Hours Ago, Still Present Timing: Constant Current Severity: Moderate Pain Intensity: 4 Pain Scale Used: 0-10 Numeric Chest Pain Location: Mid Sternal Chest Pain Radiates: No Aggravating Factor(s): Exertion Alleviating Factor(s): EMS Tx - NTG, aspirin Associated Signs and Symptoms: Positive: Other: - left arm numbness, fatigue ( past 2-3 weeks), and UE and LE soreness (past 2-3 weeks), nausea, but denies vomiting. - Allergy/Home Medications Allergies/Adverse Reactions: Allergies Allergy/AdvReac Type Severity Reaction Status Date / Time No Known Allergies Allergy Verified 06/01/17 11:11 Home Medications: Home Medications Ascorbic Acid TAB* [Vitamin C TAB*] 500 mg PO DAILY 09/01/17 [History Confirmed 09/01/17] Aspirin EC TAB* [Ecotrin EC Low Dose 81 MG*] 81 mg PO DAILY 09/01/17 [History Confirmed 09/01/17] Diclofenac Sodium EC TAB* [Voltaren EC TAB*] 50 mg PO TID PRN 09/01/17 [History Confirmed 09/01/17] Hydrocodone/Acetamin 10/325(NF [[place] 10/325 (NF)] 1 tab PO BID PRN 09/01/17 [ History Confirmed 09/01/17] Lisinopril TAB* [Prinivil TAB*] 40 mg PO DAILY 09/01/17 [History Confirmed 09/01] Melatonin (NF) [Meladox] 3 mg PO BEDTIME 09/01/17 [History Confirmed 09/01/17] Multivit-Mins/Iron/Folic/Lycop [Centrum Ultra Mens] 1 tab PO DAILY 09/01/17 [ History Confirmed 09/01/17] Pravastatin (NF) [Pravachol (NF)] 40 mg PO BEDTIME 09/01/17 [History Confirmed 09/01/17] Testosterone Cypionate (NF) [Testosterone Cypionate] 200 mg IM WEEKLY 09/01/17 [ History Confirmed 09/01/17] Zolpidem TAB* [Ambien TAB*] 10 mg PO BEDTIME PRN 09/01/17 [History Confirmed ] amLODIPine TAB* [Norvasc 5 mg TAB*] 10 mg PO DAILY 09/01/17 [History Confirmed 09/01/17] hydrOXYzine HCL TAB* [Atarax TAB 50 MG *] 50 mg PO BEDTIME PRN 09/01/17 [ History Confirmed 09/01/17] metFORMIN* [Glucophage 500 MG TAB *] 500 mg PO BID 09/01/17 [History Confirmed 09/01/17] PMH/Surg Hx/FS Hx/Imm Hx Endocrine/Hematology History: Reports: Hx Diabetes - TYPE 2 Denies: Hx Thyroid Disease Cardiovascular History: Reports: Hx Hypercholesterolemia, Hx Hypertension - CONTROL, Other Cardiovascular Problems/Disorders - CHOLESTEROL CONTROL WITH MEDS Respiratory History: Reports: Hx Sleep Apnea Denies: Hx Asthma, Hx Chronic Obstructive Pulmonary Disease (COPD), Other Respiratory Problems/Disorders GI History: Denies: Hx Ulcer, Other GI Disorders Musculoskeletal History: Reports: Hx Arthritis - hands,elbow,back, ankle Denies: Hx Scoliosis, Other Musculoskeletal History Sensory History: Reports: Hx Contacts or Glasses - READING GLASSES Denies: Hx Hearing Aid Opthamlomology History: Reports: Hx Contacts or Glasses - READING GLASSES Neurological History: Reports: Hx Headaches, Other Neuro Impairments/Disorders - INJURED C4-C5 TO LOWER TSP SPINE IN [place] ACCIDENT - Cancer History Hx Chemotherapy: No - Surgical History Surgery Procedure, Year, and Place: 2000 RIGHT SHOULDER SURGERY, [facility]. [id number] RIGHT KNEE ARTHROSCOPY, PARTIAL MEDIAL MENISCECTOMY X 2 , [facility]. 2006 RIGHT KNEE EUA, DIAGNOSTIC ARTHROSCOPY, [facility]. 2008 RIGHT ANKLE SURGERY, [facility]. [place] [facility] [place] [facility] [place]. [place] [facility] [place] Anesthesia Reactions: No Infectious Disease History: No Infectious Disease History: Denies: Hx Clostridium Difficile, Hx Hepatitis, Hx Human Immunodeficiency Virus (HIV), Hx of Known/Suspected MRSA, Hx Shingles, Hx Tuberculosis, Hx Known/ Suspected VRE, Hx Known/Suspected VRSA, History Other Infectious Disease, Traveled Outside the [place] in Last 30 Days - Family History Known Family History: Positive: Hypertension, Diabetes - Social History Lives: With Family Alcohol Use: Rare Alcohol Amount: 2 per month Substance Use Type: Reports: None Smoking Status (MU): Light Every Day Tobacco Smoker Type: Cigarettes Amount Used/How Often: 1 pack every 2 days, since age 18 Length of Time of Smoking/Using Tobacco: 27 YEARS Have You Smoked in the Last Year: Yes Review of Systems Positive: Fatigue. Negative: Fever, Chills Negative: Erythema Negative: Sore Throat Positive: Chest Pain Negative: Shortness Of Breath, Cough Positive: Nausea. Negative: Abdominal Pain, Vomiting Negative: dysuria, hematuria Positive: Other - UE and LE soreness. Negative: Myalgia, Edema Negative: Rash Neurological: Other - negative dizziness Positive: Numbness - LUE All Other Systems Reviewed And Are Negative: Yes Physical Exam - Summary Physical Exam Summary: Constitutional: Well-developed, Well-nourished, Alert. (-) Distressed Skin: Warm, Dry HENT: Normocephalic; Atraumatic Eyes: Conjunctiva normal Neck: Musculoskeletal ROM normal neck. (-) JVD, (-) Stridor, (-) Tracheal deviation Cardio: Rhythm regular, rate normal, Heart sounds normal; Intact distal pulses; The pedal pulses are 2+ and symmetric. Radial pulses are 2+ and symmetric. (-) Murmur Pulmonary/Chest wall: Effort normal. (-) Respiratory distress, Diminished breath sounds, expiratory wheeze Abd: Soft, (-) Tenderness, (-) Distension, (-) Guarding, (-) Rebound Musculoskeletal: (-) Edema Lymph: (-) Cervical adenopathy Neuro: Alert, Oriented x3 Psych: Mood and affect Normal Triage Information Reviewed: Yes Vital Signs On Initial Exam: Initial Vitals Temp Pulse Resp BP Pulse Ox 98.7 F 63 17 148/96 98 04/25/18 12:38 09/01/17 12:38 09/01/17 12:38 09/01/17 12:38 09/01/17 12:38 Vital Signs Reviewed: Yes Diagnostics - Vital Signs Vital Signs Temp Pulse Resp BP Pulse Ox 09/01/17 12:38 98.7 F 63 17 148/96 98 - Laboratory Result Diagrams: 09/01/17 13:20 09/01/17 13:20 Lab Statement: Any lab studies that have been ordered have been reviewed, and results considered in the medical decision making process. - Radiology CXR Radiology Interpretation Completed By: Radiologist - CXR reveals given history of tobacco use consider CT to further assess the potential 7 mm nodule at the LEFT lung base. The examination is otherwise unremarkable. Dr. Sanchez has reviewed this radiology report. - EKG 1248 Cardiac Rate: Bradycardia - 54 bpm EKG Rhythm: Sinus Bradycardia EKG Interpretation: no STEMI. 1514 Cardiac Rate: Bradycardia - 55 bpm EKG Rhythm: Sinus Bradycardia EKG Interpretation: no STEMI Chest Pain Course/Dx - Course Assessment/Plan: Pt has numerous cardiac risk factors including Hx HTN, DM, and HLD. Atypical presentations of symptoms but he requires ACS r/o and possible provocative testing. - Diagnoses Provider Diagnoses: Chest pain, unspecified - Provider Notifications Discussed Care Of Patient With: Amor Samuel - Hospitalist Time Discussed With Above Provider: 13:13 Instructed by Provider To: Admit As Inpatient Discharge - Sign-Out/Discharge Documenting (check all that apply): Discharge/Admit/Transfer - Discharge Plan Condition: Stable Disposition: ADMITTED TO Health system documentation as recorded by the Aurora ladd Nilda accurately reflects the service I personally performed and the decisions made by , Jamey Sanchez MD.
[2017-09-02 14:12] VITALS: BP 163/108
--- NOTE | 2017-09-02 21:12 | DS ---
CC: Dr. Amin from [facility]* DISCHARGE SUMMARY: DATE OF ADMISSION: 09/01/17 DATE OF DISCHARGE: 09/02/17 PRIMARY CARE PROVIDER: Dr. Amin from [facility]. DISCHARGE DIAGNOSIS: Chest pain with low probability cardiac stress test, obtained on 09/02/17. SECONDARY DIAGNOSES: 1. Diabetes. 2. Hypertension. 3. Hyperlipidemia. 4. History of cervical spine disk disease. 5. Anxiety. 6. Depression. 7. Obstructive sleep apnea. 8. Ongoing problem with abscess tooth. MEDICATIONS AT DISCHARGE: Unchanged from admission and include: 1. Melatonin 3 mg at bedtime. 2. Lisinopril 40 mg daily. 3. Metformin 500 mg b.i.d. 4. Amlodipine 10 mg daily. 5. Multivitamin 1 tablet daily. 6. Vitamin C 500 mg daily. 7. [place] 1 tablet b.i.d. p.r.n. 8. Oxycodone 10 to 20 mg every 4 hours as needed. 9. Testosterone 200 mg IM weekly. 10. Pravachol 40 mg at bedtime. 11. Potassium 20 mEq daily. 12. Atarax 50 mg at bedtime as needed. 13. Ambien 10 mg at bedtime as needed. 14. Cymbalta 60 mg daily. 15. Coreg 12.5 mg b.i.d. 16. Aspirin 81 mg daily. 17. Gabapentin 300 mg q.a.m. 18. Voltaren EC 50 mg up to 3 times a day as needed for pain. LABORATORY DATA AND STUDIES PERFORMED DURING THE HOSPITAL STAY: Included: On 09/02/17, white blood cell count 15.8, hemoglobin 16.3, hematocrit 48, and platelets of 143,000. Sodium of 137, potassium 4.1, chloride 105, carbon dioxide 26, BUN 13, creatinine 1.06. The patient's hemoglobin A1c was 6.8. Triglycerides were 162. Total cholesterol of 157. LDL was [address] angiogram of the chest obtained on 09/01/17, impression: "No evidence of pulmonary embolism is noted. No evidence of left lower lobe nodule was identified as previously reported on chest x-ray." Cardiac stress test documented on 09/02/17, low risk. There was no compelling stress-induced ischemia or presence of an infarct. Dilated left ventricle. Hypokinesia of the septum. Normal range estimated left ventricular ejection fraction with EF of 54% assessed. HOSPITALIZATION COURSE: Demetrius Rojas is a 47-year-old male with history of diabetes, hypertension, dyslipidemia, chronic pain issues, who presented to the hospital complaining of chest pain for the past 2 to 3 weeks. For further details of the patient's presentation, please see history and physical dictated on admission. Shortly, the patient no longer had chest pain during his observation on telemetry monitored bed. His troponins remained negative and he underwent a cardiac stress test on 09/02/17, which was documented as above with low probability for cardiac ischemia, but dilated left ventricle and hypokinetic septum. The patient is going to be discharged home with recommendations to follow up with primary care provider. PHYSICAL EXAMINATION AT THE TIME OF DISCHARGE: Blood pressure of 147/84, heart rate 53 and regular, respiratory rate 18, oxygen saturation 97% on room air, temperature 97.4. General: The patient is a very pleasant 47-year-old male, who is in no acute distress. Alert, awake, and oriented x3. HEENT: Head: Atraumatic, normocephalic. Eyes: Pupils are equal, reactive to light and accommodation. Oropharynx clear. Mucosa moist. Neck: Supple. No JVD. No bruits bilaterally. Cardiovascular: Regular rate and rhythm. No murmur. Respiratory: Clear to auscultation bilaterally. Abdomen: Soft, nontender. Bowel sounds are present in all 4 quadrants. Extremities: There is no edema. Pulses +2 bilaterally. No clubbing or cyanosis. Neuro Evaluation: Speech is clear. Cranial nerves II through XII grossly intact. Motor strength is 5/5 bilaterally. Please note that this is a short summary of the patient's hospitalization. Please refer to further medical records for details. [id number]/[facility] #: [id number] MTDD
== END 2017-09-02 15:04 | disposition home or self-care (01) ==
LOC: ED 12:36 → MEDTELE 14:41
PROVIDERS: ADMIT Internal Medicine; ATTEND Internal Medicine
DX: R07.9 Chest pain, unspecified (principal); E11.9 Type 2 diabetes mellitus without complications; I10 Essential (primary) hypertension; E78.5 Hyperlipidemia, unspecified; M50.30 Other cervical disc degeneration, unspecified cervical region; F41.9 Anxiety disorder, unspecified; F32.9 Major depressive disorder, single episode, unspecified; G47.33 Obstructive sleep apnea (adult) (pediatric); K04.7 Periapical abscess without sinus; Z79.899 Other long term (current) drug therapy; Z79.84 Long term (current) use of oral hypoglycemic drugs; F17.210 Nicotine dependence, cigarettes, uncomplicated; R94.31 Abnormal electrocardiogram [ECG] [EKG]; R00.1 Bradycardia, unspecified
CPT/HCPCS: 36415; 71045; 71275; 78452; 80048; 80053; 80061; 81003; 81015; 83036; 83605; 84484; 85025; 85379; 87040; 87086; 93005; 93017; 94640; 94660; 96372; 99285; A9270-GY; A9502; G0378; J0280; J1644; J2785; Q9967

== ENCOUNTER 2019-04-25 18:38 | Emergency (ER) | payer OTHER ==
[2019-04-25] MEDS ORDERED: Diazepam TAB(*) 5 MG PO ONE ×2 (19:05→20:52)
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
[2019-04-25] MEDS ORDERED: Ketorolac INJ* 15 MG/ML 1 ML VIAL IM ONE (20:28)
[2019-04-25 21:08] VITALS: BP 142/98
== END 2019-04-25 21:07 | disposition home or self-care (01) ==
LOC: ED 18:38
DX: M62.838 Other muscle spasm (principal); V49.3XXA Car occupant (driver) (passenger) injured in unspecified nontraffic accident, initial encounter; Y92.410 Unspecified street and highway as the place of occurrence of the external cause; F17.210 Nicotine dependence, cigarettes, uncomplicated; Z79.899 Other long term (current) drug therapy
CPT/HCPCS: 72125; 96372; 99282; A9270-GY; J1885